=== PATIENT | female | born 1940 | race Caucasian/White ===

== ENCOUNTER 2017-10-30 17:04 | Inpatient (IN) | payer OTHER ==
[~2017-10-30] VITALS: Ht 149.9 cm; Wt 56.4 kg
[~2017-10-30 17:04] MED LIST: ACTONEL35 MG PO; ALPRAZOLAM0.25 M2 PO; AMBIEN10 MG PO; AMLODIPINE BESY10 MG PO; AMLODIPINE BESYL5 MG PO; APRESOLINE10 MG PO; ARICEPT10 MG PO; ASPIR-LOW81 MG PO; ASPIRIN E.C.81 M1 PO; ASPIRIN E.C.81 M2 PO; ASPIRIN81 M1 PO; ASPIRIN81 M2 PO; ATROVENT 0.06%15 ML BOTH NARES; Actonel PO; Ambien PO; Aricept PO; CALCIUM 500 MG1 EACH PO; CALCIUM CARBON300 MG PO; CALCIUM CARBON600 M1 PO; CARAFATE100 MG/ML PO; CILOSTAZOL50 MG PO; CIPRO250 MG PO; CIPRO500 MG PO; CLOTRIMAZOLE-BE15 GM TP; CRESTOR5 MG PO; CYANOCOBALAM1000 MCG PO; Cipro PO; EXALGO16 MG PO; EXALGO8 MG PO; FENTANYL1 EAC5 TD; FLAGYL250 MG PO; HYDROCHLOROTH12.5 M1 PO; HYDROCODON-ACE1 EAC1 PO; HYDROCODON-ACE1 EAC7 PO; IPRATROPIUM BRO15 ML BOTH NARES; ISORDIL TITRADOS5 MG PO; K-DUR10 MEQ PO; KEFLEX500 MG PO; KETOCONAZOLE60 GM TP; LASIX20 MG PO; LO-DOSE ASPIRIN81 M1 PO; LORTAB 7.5-3251 EACH PO; LOW DOSE ASPIRI81 M1 PO; LYRICA100 MG PO; LYRICA50 MG PO; LYRICA75 MG PO; Levaquin PO; MAG-OX400 M1 PO; MAGNESIUM400 M1 PO; MECLIZINE HCL12.5 M1 PO; MELATONIN10 M1 PO; MELATONIN10 M2 PO; MELOXICAM7.5 MG PO; MIRTAZAPINE15 MG PO; MIRTAZAPINE7.5 MG PO; NAMENDA5 MG PO; NEURONTIN800 MG PO; NORCO 5/3251 TABLET PO; NORMODYNE,TRAN200 MG PO; NORVASC5 MG PO; Neurontin PO; Niferex-150,Ferrex 1 PO; Norvasc PO; PAXIL20 MG PO; PLAVIX75 MG PO; PLETAL50 M2 PO; PLETAL50 MG PO; POTASSIUM CHLO10 ME3 PO; POTASSIUM CHLO20 ME1 PO; PREVACID SOLUTA30 MG PO; PROTONIX40 MG PO; REGLAN5 MG PO; REMERON15 M2 PO; SEROQUEL12.5 MG PO; TOPROL XL50 MG PO; TRAMADOL HCL50 MG PO; TRAMADOL PO; VICODIN 5-3001 EACH PO; VICODIN ES 7.51 EAC1 PO; VICODIN,LORT1 TABLET PO; VITAMIN B CO1 TABLET PO; VITAMIN B W/C1 EACH PO; VITAMIN B122500 MCG PO; VITAMIN D2000 INTUN PO; VITAMIN D31000 UNIT PO; VITAMIN D5000 UNIT PO; VITAMIN E PO; Vicodin,Lortab 5/500 PO; Vitamin B-12 SL; XANAX0.25 MG PO; ZETIA10 MG PO; ZOLOFT25 MG PO; ZOLOFT50 MG PO
[2017-10-30 18:45] LABS: BASOPHIL (%) 0.2 % (0-1); EOSINOPHIL (%) 0 % (0-5); HEMATOCRIT 41.8 % (36.0-46.0); HEMOGLOBIN 13.8 G/DL (11.9-15.5); IMMATURE GRANULOCYTE (%) 0.5 % (0.0-0.7); LYMPHOCYTE (%) 13.9 % (15-42); LYMPHOCYTE COUNT 1.8 K/uL (1.0-2.8); MCH 27.4 PG (29.0-34.0); MCV 83.1 FL (83-99); MONOCYTE COUNT 1.8 K/uL (0-0.8); NEUTROPHIL (%) 71.4 % (45-76); PLATELET COUNT 193 K/uL (156-360); RBC DIS.WIDTH-CV 15.9 % (11.8-14.6); RBC DIS.WIDTH-SD 47.9 % (39-53); RED BLOOD COUNT 5.03 M/uL (3.80-5.20); WHITE BLOOD COUNT 12.6 K/uL (4.1-10.2)
[2017-10-30 18:54] LABS: ALBUMIN 3.3 g/dL (3.2-4.8); CHLORIDE 113 mEq/L (99-109); POTASSIUM 3.7 mEq/L (3.7-5.4); SODIUM 146 mEq/L (136-147)
[2017-10-30 18:55] LABS: MAGNESIUM 1.8 mg/dL (1.3-2.7)
[2017-10-30 18:57] LABS: GLUCOSE 106 mg/dL (70-99); TOTAL PROTEIN 6.2 g/dL (6.4-8.3)
[2017-10-30 18:59] LABS: TOTAL BILIRUBIN 0.7 mg/dL (0.0-1.0)
[2017-10-30 19:00] LABS: ALKALINE PHOSPHATASE 95 IU/L (3-129); GFR ESTIMATE (CALCULATED) 57 mL/min/
[2017-10-30 19:01] LABS: UREA NITROGEN (BUN) 23 mg/dL (9-23)
[2017-10-30 19:02] LABS: AST (GOT) 39 IU/L (2-34)
[2017-10-30 19:03] LABS: ALT (GPT) 16 IU/L (3-49)
[2017-10-30 19:07] LABS: TROP-I INTERPRETATION INDETERMINATE; TROPONIN-I 0.43 ng/mL (0.0-0.30)
[2017-10-30 19:31] LABS: APPEARANCE CLEAR ((CLEAR)); BILIRUBIN NEGATIVE; BLOOD NEGATIVE; COLOR YELLOW ((YELLOW)); GLUCOSE (STRIP) NEGATIVE; KETONES 5; LEUKOCYTES NEGATIVE; NITRITE NEGATIVE; PROTEIN (STRIP) NEGATIVE; SPECIFIC GRAVITY 1.019 (1.000-1.030); UCUL ADDED? NO; UROBILINOGEN 0.2 MG/DL (0.2-1.0)
[2017-10-30] MEDS ORDERED: XANAX0.25 MG PO (19:37)
[2017-10-30] MEDS ORDERED: HYDROCODON-ACE1 EAC8 PO (19:46)
[2017-10-30] MEDS ORDERED: K-DUR10 MEQ PO (19:52)
[2017-10-30] MEDS ORDERED: FEOSOL325 MG PO (19:52)
[2017-10-30] MEDS ORDERED: REFRESH EYE DR1 EACH BOTH EYES (19:58)
[2017-10-30] MEDS ORDERED: CORTIZONE-1028 GM TP (19:59)
[2017-10-30] MEDS ORDERED: LEVO-T25 MCG PO (20:02)
[2017-10-30 21:07] LABS: TROP-I INTERPRETATION INDETERMINATE; TROPONIN-I 0.39 ng/mL (0.0-0.30)
[2017-10-31 10:03] LABS: C DIFF TOXIN NEGATIVE (NEGATIVE)
[2017-10-31 14:08] VITALS: BP 149/67
[2017-10-31 15:57] VITALS: BP 149/65
[2017-10-31 21:07] VITALS: BP 136/63
[2017-11-01] VITALS (7 sets, daily range): BP systolic 136–183; BP diastolic 70–85
[2017-11-02] VITALS (9 sets, daily range): BP systolic 140–181; BP diastolic 65–85
[2017-11-02 23:42] LABS: TROP-I INTERPRETATION NEGATIVE; TROPONIN-I 0.09 ng/mL (0.0-0.30)
[2017-11-03] VITALS (7 sets, daily range): BP systolic 138–180; BP diastolic 60–79
[2017-11-03 07:08] LABS: TROP-I INTERPRETATION NEGATIVE; TROPONIN-I 0.16 ng/mL (0.0-0.30)
[2017-11-03 15:14] LABS: TROP-I INTERPRETATION NEGATIVE; TROPONIN-I 0.16 ng/mL (0.0-0.30)
[2017-11-04 04:00] VITALS: BP 177/79
[2017-11-04 07:07] LABS: HEMATOCRIT 39.3 % (36.0-46.0); HEMOGLOBIN 12.6 G/DL (11.9-15.5); MCH 27.4 PG (29.0-34.0); MCHC 32.1 G/DL (30.0-36.0); MCV 85.4 FL (83-99); PLATELET COUNT 154 K/uL (156-360); RBC DIS.WIDTH-CV 16.1 % (11.8-14.6); WHITE BLOOD COUNT 11.9 K/uL (4.1-10.2)
[2017-11-04 07:35] LABS: CHLORIDE 111 MEQ/L (99-109); CREATININE 0.8 MG/DL (0.6-1.3); GFR ESTIMATE (CALCULATED) > 59 mL/min/; GLUCOSE 90 mg/dL (70-99); POTASSIUM 3.2 MEQ/L (3.7-5.4); SODIUM 142 MEQ/L (136-147); UREA NITROGEN (BUN) 12 mg/dL (9-23)
[2017-11-04 08:34] VITALS: BP 185/73
[2017-11-04 12:00] VITALS: BP 169/75
[2017-11-04 16:21] VITALS: BP 170/74
[2017-11-04 20:20] VITALS: BP 132/60
[2017-11-05] VITALS (7 sets, daily range): BP systolic 118–168; BP diastolic 65–80
[2017-11-06 04:20] VITALS: BP 124/66
[2017-11-06 05:44] VITALS: BP 171/76
[2017-11-06 06:26] LABS: HEMATOCRIT 36.4 % (36.0-46.0); HEMOGLOBIN 12.3 G/DL (11.9-15.5); MCH 27.3 PG (29.0-34.0); MCHC 33.8 G/DL (30.0-36.0); RBC DIS.WIDTH-CV 15.9 % (11.8-14.6); RBC DIS.WIDTH-SD 46.4 % (39-53); RED BLOOD COUNT 4.51 M/uL (3.80-5.20); WHITE BLOOD COUNT 12.3 K/uL (4.1-10.2)
[2017-11-06 06:27] LABS: MCV 80.7 FL (83-99); PLATELET COUNT 210 K/uL (156-360)
[2017-11-06 06:49] LABS: CHLORIDE 111 MEQ/L (99-109); CREATININE 0.7 MG/DL (0.6-1.3); GFR ESTIMATE (CALCULATED) > 59 mL/min/; GLUCOSE 102 mg/dL (70-99); POTASSIUM 2.9 MEQ/L (3.7-5.4); SODIUM 144 MEQ/L (136-147); UREA NITROGEN (BUN) 7 mg/dL (9-23)
[2017-11-06 08:17] VITALS: BP 176/74
[2017-11-06 19:35] VITALS: BP 139/82
[2017-11-06 23:20] VITALS: BP 130/65
[2017-11-07 04:05] VITALS: BP 119/72
[2017-11-07 07:31] VITALS: BP 132/64
[2017-11-07] MEDS ORDERED: CEFTRIAXONE2 G1 IV (10:03)
[2017-11-07] MEDS ORDERED: DUONEB 2.5-0.5 M3 ML AEROSOL (10:04)
[2017-11-07 11:30] VITALS: BP 128/64
== END 2017-11-07 14:52 | DRG 178 ==
LOC: EME 17:04 → EDOF 23:00 → 4SOUTH 23:00 → ENRESERV 23:17 → 4SOUTH 10-31 13:59 → ENRESERV 11-06 04:47 → 2EAST 11-06 05:26 → ENPENDDIS 11-07 → 2EAST 11-07 14:52
PROVIDERS: Emergency Medicine; Family Medicine
DX: J69.0 Pneumonitis due to inhalation of food and vomit (principal); J10.1 Influenza due to other identified influenza virus with other respiratory manifestations; T17.990A Other foreign object in respiratory tract, part unspecified in causing asphyxiation, initial encounter; I49.5 Sick sinus syndrome; I48.0 Paroxysmal atrial fibrillation; L03.116 Cellulitis of left lower limb; J98.11 Atelectasis; I35.0 Nonrheumatic aortic (valve) stenosis; R13.10 Dysphagia, unspecified; I10 Essential (primary) hypertension; E78.5 Hyperlipidemia, unspecified; F03.90 Unspecified dementia, unspecified severity, without behavioral disturbance, psychotic disturbance, mood disturbance, and anxiety; I25.10 Atherosclerotic heart disease of native coronary artery without angina pectoris; I25.2 Old myocardial infarction; M81.0 Age-related osteoporosis without current pathological fracture; I73.9 Peripheral vascular disease, unspecified; G43.909 Migraine, unspecified, not intractable, without status migrainosus; K21.9 Gastro-esophageal reflux disease without esophagitis; D64.9 Anemia, unspecified; G62.9 Polyneuropathy, unspecified; M54.9 Dorsalgia, unspecified; R41.82 Altered mental status, unspecified; Z66 Do not resuscitate; F32.9 Major depressive disorder, single episode, unspecified; Z86.73 Personal history of transient ischemic attack (TIA), and cerebral infarction without residual deficits; Z87.11 Personal history of peptic ulcer disease; Z87.440 Personal history of urinary (tract) infections; Z87.891 Personal history of nicotine dependence; Z88.0 Allergy status to penicillin; Z90.49 Acquired absence of other specified parts of digestive tract; Z95.1 Presence of aortocoronary bypass graft; Z91.81 History of falling
CPT/HCPCS: 70450; 71045; 71046; 71250; 74230; 80048; 80053; 81003; 83605; 83735; 84132; 84132 91; 84443; 84443 GA; 84484; 85025; 85027; 87040; 87493; 87502; 92526 GN; 92610 GN; 92611 GN; 93005; 94640; 94640 76; 94760; 94799; 99202; 99281; 99285; J0360; J0692; J0696; J1630; J2270; J3480; J7040

== ENCOUNTER → 2018-01-08 | Outpatient (CLI) | payer OTHER ==
[~2018-01-08] MED LIST changes: +CEFTRIAXONE2 G1 IV; +CORTIZONE-1028 GM TP; +DUONEB 2.5-0.5 M3 ML AEROSOL; +FEOSOL325 MG PO; +HYDROCODON-ACE1 EAC8 PO; +LEVO-T25 MCG PO; +REFRESH EYE DR1 EACH BOTH EYES
== END | disposition home or self-care (01) ==
DX: R13.12 Dysphagia, oropharyngeal phase (principal); J18.9 Pneumonia, unspecified organism; Z87.19 Personal history of other diseases of the digestive system; Z86.73 Personal history of transient ischemic attack (TIA), and cerebral infarction without residual deficits
CPT/HCPCS: 92611 GN; G8996 GN; G8997 GN; G8998 GN